=== PATIENT | male | born 1995 | race Caucasian/White ===

== ENCOUNTER 2017-07-11 00:02 | Emergency (ER) | payer OTHER ==
[2017-07-11 00:07] VITALS: BP 117/81; PULSE 73; RESP 18; TEMP 97.7; O2SAT 96
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
[2017-07-11] MEDS ORDERED: HYDROCOD/APAP 5/325 PREPACK#6 BTL TAKEHOME ONE (00:38)
[2017-07-11] MEDS ORDERED: TDAP ADULT 0.5 ML INJ (BOOSTRIX) IM ONE (00:38)
== END 2017-07-11 00:51 | disposition home or self-care (01) ==
DX: T23.261A Burn of second degree of back of right hand, initial encounter (principal); T31.0 Burns involving less than 10% of body surface; Z23 Encounter for immunization; X10.2XXA Contact with fats and cooking oils, initial encounter